=== PATIENT | male | born 1950 | race Two or more races ===

== ENCOUNTER 2023-04-22 14:33 | Outpatient (REF) | payer MEDICARE, SELFPAY | END 2023-04-22 14:34 | disposition home or self-care (01) | LOC: HO.LAB 14:33 | PROVIDERS: Visit Provider Psychiatry & Neurology Neurology | DX: M48.00 Spinal stenosis, site unspecified (principal) | CPT/HCPCS: 36415; 82550 ==

== ENCOUNTER 2024-11-02 10:53 | Outpatient (AMB) | payer MEDICARE, SELFPAY ==
--- NOTE | 2024-11-02 11:18 | MHC.OFFVIS ---
Intake Visit Reasons: 3 Months PD Allergies omeprazole Allergy (Unknown, Verified 10/29/24 14:26) Unknown Medication List - Last Reconciled 11/02/24 by Francisco Asher MD amantadine HCl 100 mg PO BID carbidopa-levodopa 25-100 mg 0.5 tabs PO TID cyanocobalamin (vitamin B-12) (Vitamin B-12) 1,000 mcg PO DAILY duloxetine 20 mg PO DAILY gabapentin 300 mg PO BEDTIME pramipexole 0.25 mg PO TID HPI Comments Details: 73 years old man with clinical features of idiopathic Parkinson's disease affecting the left side more than right. He is presenting with symptoms of peripheral neuropathy. His primary complaint concerns sensations affecting both feet, prominently highlighted by coldness, especially in the left foot, coupled with tingling and bothersome sensations. The symptoms have persisted over an undetermined timeline without association to any known triggers. The patient has not exhibited symptoms commonly associated with magnesium deficiency such as muscle cramps or spasms and has no history of renal impairment. There is consideration of taking magnesium as a supplement based on a relative's experience, though its efficacy remains uncertain. Moreover, the patient describes sleep disturbances characterized by nocturnal awakenings, for which he takes a nighttime pill at a 300 mg dosage. A provision to redose upon waking is noted as part of his management strategy. Inquiries into daily habits reveal the patient frequently naps at 2 o'clock in the afternoon, but there is no specific reference to the duration or whether this affects nighttime sleep quality. 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 - Sleep: Reports nocturnal awakenings, takes nighttime medication. - Musculoskeletal: Denies generalized body aches, which could be mistaken for systemic problems given current treatment. - Renal: Denies any history of kidney failure. Physical Exam Neuro Other: He is alert and awake with normal spontaneity of speech fluency comprehension and flat affect. Face is symmetrical. Visual granado are full. There was mild generalized bradykinesia decreased facial expression. There was mild right hand resting tremor. He is walking cautiously with a cane. Assessment & Plan Assessment & Plan (1) Parkinson's disease dementia: Code(s): G20.A1 - Parkinson's disease without dyskinesia, without mention of fluctuations; F02.80 - Dementia in other diseases classified elsewhere, unspecified severity, without behavioral disturbance, psychotic disturbance, mood disturbance, and anxiety Category: Medical Qualifiers: Dementia severity: mild Dementia behavioral or psychological symptom: with anxiety Qualified Code(s): G20.A1 - Parkinson's disease without dyskinesia, without mention of fluctuations; F02.A4 - Dementia in other diseases classified elsewhere, mild, with anxiety (2) REM sleep behavior disorder: Code(s): G47.52 - REM sleep behavior disorder Category: Medical Plan Impression: a: Parkinson diseaes, mild to mod, with behavioral symptoms of anxiety b: REM sleep behavior disorder c: Left foot numbness d: Whole body pain Rec: Carbidopa/levodopa 25/100, 1/2 tid Amantadine 100mg bid Pramipaxole 0.25mg tid Duloxetine 20mg daily Gabapentin 300mg one at night May consider EMG/NCS if foot symptoms worsen Medications: New amantadine HCl 100 mg PO BID 180 tabs 1RF carbidopa-levodopa 25-100 mg 0.5 tabs PO TID 180 tabs 1RF gabapentin 300 mg PO BEDTIME 90 caps 1RF pramipexole 0.25 mg PO TID 270 tabs 1RF Refilled duloxetine 20 mg PO DAILY 90 caps 1RF Coding Level of Care Code Est Pt Level 5 (23525) Diagnoses 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
--- OUTSIDE RECORDS SUMMARY | 2024-11-02 13:28 | XMS_ITS | Encounter Summary ---
Author Organization [facility] [place] [address] Care Team Providers Care Core Laying Machine Operator Name Role Phone Armando Aviles MD Primary Care Provider [phone] Encounter Details Date Type Department Care Team ([facility] st Contact Info) Description 10/28/2024 Telephone Adult Medicine [facility] [address] [place] [phone] Armando Aviles MD [address], [place] [phone] Social History Tobacco Use Types Packs/Day Years Used Date Smoking Tobacco: Never Smokeless Tobacco: Never Alcohol Use Standard Drinks/Week Comments Yes 0 (1 standard drink = 0.6 oz pur e alcohol) Sex and Gender Information Value Date Recorded Sex Assigned at Not on file Legal Sex Male 5:46 AM EST Gender Identity Not on file Sexual Orientation Not on file documented as of this encounter Progress Notes * Jinny Sarabia - 10/28/2024 3:15 PM EDT What insurance does the patient have today? [facility]or: [email or web address] Referrals cannot be processed if the insurance is not accurate. If the insurance listed above is NO BILLING INFORMATION FOUND FOR THIS ENCOUNTER then the patients correct insurance must be obtainedand registered in [facility] or their referral can not be processed. Name of person calling to request this referral? Fax -[facility] Neurology & Sleep Referred To Provider (Include first and last name): Francisco Asher NPI (if known): [id number] Order/Specialty requested neurology Chief Complaint (Note: This is not a body part or a procedure): G20.A1 parkinson's disease Has the patient seen provider for this problem/Dx before? Referred To Provider Address: [address] [place] [address] Referred To Provider Referred To Provider Does patient have an appointment scheduled?: yes If yes, what is the date of the appointment?: 11/02/24 Is this a retro request? no Number of visits requested: 6 Is this appointment related to: MVA or worker compensation? no documented in this encounter Plan of Treatment Upcoming Encounters Date Type Department Care Team (Late st Contact Info) Description 01/03/2025 3:00 PM EST Office Visit Adult Medicine [address] [phone] Armando Aviles MD [address] [place] [phone] documented as of this encounter Visit Diagnoses Diagnosis Parkinson's disease without dyskinesia, without mention of fluctuations (CMS/HCC V24, CMS/HCC V28)- Primary documented in this encounter Additional Health Concerns Assessment Noted Time PHQ-9 Depression Total Score: 9 08/31/19 25 2:06 PM EDT A fall risk assessment has been complete d for the patient 08/30/2024 2:03 PM EDT documented as of this encounter Care Teams Core Laying Machine Operator Relationship Specialty Start Date End Date Armando Aviles MD [address] [place] [phone] PCP - General 12/10/1998 documented as of this encounter
--- OUTSIDE RECORDS SUMMARY | 2024-11-02 13:28 | XMS_ITS | Clinical Summary ---
Author Organization [facility] [address] [place] [address] [place] [phone] Phone Care Team Providers Care Inspector Raw Quartz Name Role Phone Armando Aviles MD Primary Care Provider [phone] Allergies Active Allergy Reactions Criticality Noted Date Comments Proton Pump Inhibitors Hives 03/12/2006 Omeprazole 20 Mg [Proton Pump Inhibitors] Medications amantadine (SYMMETREL) 100 mg tablet TAKE 1 TABLET BY MOUTH IN THE MORNING AND NOONTIME 12/24/2022 Active aspirin 81 mg EC tablet Take 1 Tablet by mouth daily. Active cholecalciferol (VITAMIN D-3) 50 mcg (2,000 unit) tablet Take 1 Tablet by mouth daily. 02/17/2023 Active gabapentin (NEURONTIN) 100 mg capsule Take 2 capsules (200 mg total) by mouth at bedtime. 12/11/2022 Active pramipexole (MIRAPEX) 0.25 mg tablet Take 1 Tablet by mouth 3 times daily. Active cyanocobalamin (VITAMIN B-12) 1,000 mcg tablet Take 1 Tablet by mouth daily. Active DULoxetine (CYMBALTA) [address] capsule Take 1 capsule (20 mg total) by mouth 1 (one) time each day. Do not crush or chew. Active carbidopa-levod opa (SINEMET) 25-100 mg per tablet TAKE 1/2 ORALLY THREE TIMES A DAY 90 DAYS 01/29/2024 Active Active Problems Problem Noted Date Diagnosed Date Vitamin B12 deficiency disease 08/30/2024 Assessment & Plan (08/30/2024 2:44 PM EDT): Orders: Vitamin B12 and folate; Future Tendinitis of left rotator cuff 12/19/2023 Assessment & Plan (12/19/2023 9:26 AM EST): No response to injection and not improving with physical therapy. Will order MRI. Orders: MR Shoulder wo Contrast Left; Future Dyslipidemia 11/18/2023 BPH (benign prostatic hyperplasia) 11/18/2023 Spinal stenosis 11/18/2023 Parkinson disease ([facility] V24, [facility] V28) Assessment & Plan (08/30/2024 2:44 PM EDT): REM sleep behavior disorder 12/23/2022 Obesity (BMI 30.0-34.9) 08/20/2021 Pericardial cyst 04/26/2014 Overview (11/18/2023): Per cardiology, pt reported, repeat CT in 2018 Prediabetes 11/20/2011 Assessment & Plan (08/30/2024 2:44 PM EDT): Orders: Hemoglobin A1c; Future Epidermal cyst 05/03/2010 Chronic abdominal pain 05/12/2009 Overview (11/18/2023): See GI comment, complex picture, IBS? EGD by Dr. Cannon 08/19. Mixed hyperlipidemia 01/10/2006 Assessment & Plan (08/30/2024 2:44 PM EDT): Helicobacter pylori infection 01/09/2006 Overview (11/18/2023): fully treated 12/16 IMO update Hypertrophy of prostate without urinary obstruct ion 07/04/2005 Kidney stone 07/04/2005 Overview (11/18/2023): Follows with urology, Dr. Benz Last flare up 10/2019 Encounters Date Type Department Care Team Description 10/29/2024 Telephone Adult Medicine [address] [phone] Armando Aviles MD 10/28/2024 Telephone Adult Medicine [address] [phone] Armando Aviles MD 08/30/2024 2:00 PM EDT Office Visit Adult Medicine [address] [phone] Armando Aviles MD Routine general medical examination at a health care facility (Primary Dx); Prediabetes; Parkinson's disease, unspecified whether dyskinesia present, unspecified whether manifestations fluctuate (CMS/HCC V24, CMS/HCC V28); Cataract, unspecified cataract type, unspecified laterality; Mixed hyperlipidemia; Vitamin B12 deficiency disease from Last 3 Months Immunizations Name Administration Dates Next Due Influenza trivalent, 0.5mL ( Fluad) 65yo and older 12/30/2023 Influenza trivalent, 0.5mL ( Fluzone High-dose) 65yo and older 11/04/2022,02/14/2022,11/23/2020,11/24,11/20/2017,11/15/2016 Influenza trivalent, with pr eservative (Fluzone; Afluria) 6mo and older 12/10/2015,01/16/2015,11/25/2013,11/24,11/20/2011,11/16/2010,01/09/2006 [email or web address] SARS-CoV-2 COVID-19, mRNA, LNP-S, preservative free 05/06/2020 Pneumococcal conjugate 13 va lent (Prevnar 13, PCV13) 2mo and older 05/29/2016 Pneumococcal conjugate 20 va lent (Prevnar 20, PCV 20) 2mo and older 12/30/2023 Pneumococcal polysaccharide 23 valent (Pneumovax 23) 2yo and older 08/15/2014 Td Tetanus diptheria (Tdvax) 7yo and older 08/20/2021,12/13/2002 Tdap Tetanus diptheria acell ular pertussis (Boostrix; Adacel) 7yo and older 03/28/2009 Zoster Live 05/21/2011 Zoster recombinant (Shingrix ) 19yo and older 07/14/2023,05/13/2023 Surgical History Surgery Date Site/Laterality Comments COLONOSCOPY 03/17 PROCEDURE: HISTORICAL COLONOSCOPY; COMMENT: normal. UPPER GASTROINTESTINAL ENDOSCOPY 09/06/2009 PROCEDURE: ND UPPER GI ENDOSCOPY PERFORMED; COMMENT: [facility] at [facility]; gastritis COLONOSCOPY W/ BIOPSIES 2014 PROCEDURE: ND COLONOSCOPY W/BIOPSY SINGLE/MULTIPLE; COMMENT: 6 mm cecal polyp: tubular adenoma. Medical History Medical History Date Comments Calculus of kidney 07/04/2005 DX:Calculus o f kidney Hypertrophy of prostate with out urinary obstruction and other lower urinary tract symptoms (LUTS) 07/04/2005 DX:Hypertrophy of prosta te without urinary obstruction and other lower urinary tract symptoms (LUTS) Helicobacter pylori (H. pylori) 01/09/2006 DX:Helicobacter pylori (H. pylori) Helicobacter pylori (H. pylori) 01/09/2006 DX:Helicobacter pylori (H. pylori); COMMENT: fully treated 12/16 Mixed hyperlipidemia 01/10/2006 DX:Mixed hy perlipidemia Special screening for malign ant neoplasms, colon 03/12/2006 DX:Special screening for mal ignant neoplasms, colon; COMMENT: Negative colonoscopy 03/19/2004, no colon cancer screening needed for 10 years. Chronic abdominal pain 05/12/2009 DX:Chroni c abdominal pain Epidermal cyst 05/03/2010 DX:Epidermal cys t Abdominal pain, other specified site 11/20/2011 DX:Abdominal pain, other specified site Hyperglycemia 11/20/2011 DX:Hyperglycemia Pericardial cyst 04/26/2014 DX:Pericardial cyst Family History Medical History Relation Name Comments Prostate cancer Father Diabetes Mother obesity Relation Name Status Comments Brother x 1 Alive Father Maternal Grandfather Maternal Grandmother Mother Paternal Grandfather Paternal Grandmother Sister x 4 Alive Social History Tobacco Use Types Packs/Day Years Used Date Smoking Tobacco: Never Smokeless Tobacco: Never Tobacco Cessation:Counseling Given: Not Answered Alcohol Use Standard Drinks/Week Comments Yes 0 (1 standard drink = 0.6 oz pur e alcohol) Sex and Gender Information Value Date Recorded Sex Assigned at Not on file Legal Sex Male 5:46 AM EST Gender Identity Not on file Sexual Orientation Not on file Obstetrics History Last Filed Vital Signs Vital Sign Reading Time Taken Comments Blood Pressure 135/77 08/30/2024 1:54 PM EDT Pulse 88 08/30/2024 1:54 PM EDT Temperature 36.6 C (97.9 F) 08/30/2024 1:54 PM EDT Respiratory Rate 18 08/30/2024 1:54 PM EDT Oxygen Saturation 99% 12/30/2023 8:45 AM EST Inhaled Oxygen Concentration - - Weight 88.9 kg (196 lb) 08/30/2024 1:54 PM EDT Height 165.1 cm (5' 5 ) 08/30/2024 1:54 PM EDT Body Mass Index 32.62 08/30/2024 1:54 PM EDT Plan of Treatment Upcoming Encounters Date Type Department Care Team (Late st Contact Info) Description 01/03/2025 3:00 PM EST Office Visit Adult Medicine [facility] [address] [place] [address] Armando Aviles MD [address] [place] [address] Health Maintenance Due Date Last Done Comments Social Influencers of Health Screening 01/19/2022 RSV Immunization Adult Patients (1 - 1-dose 75+ series) 12/08/2023 Influenza Vaccine (#1) 2024 , 11/04/2022, 02/14/2022, Additional history exists Falls Risk Assessment 08/30/2025 08/30/2024 , 08/30/2024, 12/30/2023 Medicare Annual Wellness Visit 08/30/2025 08/30/2024 Colorectal Cancer Screening: Colonoscopy 01/08/2026 01/08/2021 Cholesterol Screening (Lipid Panel) 09/11/2028 09/12/2023, 09/12/2023 DTaP,Tdap,and Td Vaccines (4 - Td or Tdap) 08/21/2031 08/20/2021, 03/28/2009, 12/13/2002 Hepatitis C Screening Completed 11/16/2012 COVID-19 Vaccine Discontinued 05/29/2020, 05/06/2020 Zoster Vaccines Completed 07/14/2023, 04/0 03/2023, 05/21/2011 Pneumococcal Vaccine: 50+ Years Completed 12/30/2023, 05/29/2016, 08/15/2014 Depression Screening Completed 08/30/2024 HIB Vaccines Aged Out No longer eligi ble based on patient's age to complete this topic HPV Vaccines Aged Out No longer eligi ble based on patient's age to complete this topic Hepatitis A Vaccines Aged Out No long er eligible based on patient's age to complete this topic Hepatitis B Vaccines Aged Out No long er eligible based on patient's age to complete this topic IPV Vaccines Aged Out No longer eligi ble based on patient's age to complete this topic MMR Vaccines Aged Out No longer eligi ble based on patient's age to complete this topic Meningococcal ACWY Vaccine Aged Out N o longer eligible based on patient's age to complete this topic Meningococcal B Vaccine Aged Out No l onger eligible based on patient's age to complete this topic RSV Immunization Patients Under 20 months Aged Out No longer eligible based on patient's age to complete this topic Varicella Vaccines Aged Out No longer eligible based on patient's age to complete this topic Procedures Procedure Name Priority Date/Time Associated Diagnosis Comments LIPID PANEL Routine 09/12/2023 COLONOSCOPY Routine 01/08/2021 HEPATITIS C SCREENING Routine 11/16/2012 from Last 3 Months or Most Recently Relevant to Health Maintenance Results * (ABNORMAL) Lipid panel (09/12/2023) [facility] LDL/HDL Ratio 4 0 - 4 Triglycerides 167(A) 0 - 150 mg/dL Cholesterol 137 0 - 200 mg/dL HDL 35(A) >=40 mg/dL LDL Cholesterol 69 0 - 100 mg/dL Blood Venous blood specimen / Unknown us Historical Provider LAB BLOOD ORDERABLES Tanika l Result * Colonoscopy (01/08/2021) [facility] Colonoscopy no interpretation , abstracted Anatomical Region Laterality Modality Other us Historical Provider HEALTH MAINTENANCE Final Result * Hepatitis C Screening (11/16/2012) [facility] Hepatitis C Screening abstracted us Historical Provider HEALTH MAINTENANCE Final Result from Last 3 Months or Most Recently Relevant to Health Maintenance Insurance [employer] Care Teams Inspector Raw Quartz Relationship Specialty Start Date End Date Armando Aviles MD [address] [place] [address] [place] [address] PCP - General 12/10/1998
--- OUTSIDE RECORDS SUMMARY | 2024-11-02 13:28 | XMS_ITS | Encounter Summary ---
Author Organization [facility] [address] Care Team Providers Care Creative Director Name Role Phone Armando Aviles MD Primary Care Provider [phone] Reason for Visit * Reason Onset Date Comments Referral 10/29/2024 Encounter Details Date Type Department Care Team ([facility] st Contact Info) Description 10/29/2024 Telephone Adult Medicine [facility] [address] [place] [address] Armando Aviles MD [address], [place] [phone] Social History Tobacco Use Types Packs/Day Years [...] as of this encounter Progress Notes * Derrick Jeter - 10/29/2024 2:51 PM EDT Referral Request: What insurance does the patient have today? Payor: [employer] MEDICARE ADVANTAGE / Plan: [employer] [facility] MEDICARE ADVANTAGE / Product Type: *No Product type* / Referrals cannot be processed if the insurance is not accurate. If the insurance listed above in red is NO BILLING INFORMATION FOUND FOR THIS ENCOUTNER The patients correct insurance must be obtained and registered in [facility] or their referral can not be processed. Who is calling to request this referral?Bryne - Referral Department If the caller is not the patient, what is their name? Bryne Ask the patient WHO referred them to this specialty: Patient self referred FIRST and LAST NAME of SPECIALIST PATIENT is seeing: Francisco Almonte What specialty is this? Neurology & sleep DIAGNOSIS Patient is being seen for (Not a body part or a procedure): G20.81 - Parkinsons disease Have you seen this SPECIALIST for this PROBLEM/DX before? If YES, when? No Have you checked REVIEW or the APPT DESK to see if this referral has already been done or has visits left? yes Is this visit: Initial Visit Address of Specialist: [address] , [address] [facility] Phone # of Specialist: [phone] Fax #: (if applicable): [phone] Does patient have an appointment scheduled?: yes Date of appointment- (including a retro-request): November 02 2024 Is this appointment related to: Not MVA, worker compensation, or surgery related documented in this encounter Plan of Treatment Upcoming Encounters Date Type Department Care Team (Late st Contact Info) Description 01/03/2025 3:00 PM EST Office Visit Adult Medicine [address] [phone] Armando Aviles MD [address] [place] [address] documented as of this encounter Visit Diagnoses Not on filedocumented in this encounter Additional Health Concerns Assessment Noted Time PHQ-9 Depression Total Score: 9 08/31/19 25 2:06 PM EDT A fall risk assessment has been complete d for the patient 08/30/2024 2:03 PM EDT documented as of this encounter Care Teams Creative Director Relationship Specialty Start Date End Date Armando Aviles MD [address] [place] [address] PCP - General 12/10/1998 documented as of this encounter
== END 2024-11-02 11:29 | disposition home or self-care (01) ==
LOC: HO.HSM 10:54
PROVIDERS: PCP Internal Medicine; Visit Provider Psychiatry & Neurology Neurology
DX: G20.A1 Parkinson's disease without dyskinesia, without mention of fluctuations (principal); F02.A4 Dementia in other diseases classified elsewhere, mild, with anxiety; G47.52 REM sleep behavior disorder
CPT/HCPCS: 99214

== ENCOUNTER → 2024-11-02 10:53 | Outpatient (BNVA) | payer MEDICARE, SELFPAY | PROVIDERS: PCP Internal Medicine; Visit Provider Psychiatry & Neurology Neurology | DX: G20.A1 Parkinson's disease without dyskinesia, without mention of fluctuations (principal); G47.52 REM sleep behavior disorder; F02.A4 Dementia in other diseases classified elsewhere, mild, with anxiety | CPT/HCPCS: 99212 ==